=== PATIENT | female | born 1960 | race Caucasian/White ===

== ENCOUNTER → 2023-03-22 12:34 | Outpatient (REF) | payer BC, SELFPAY ==
[2023-03-22 13:38] LABS: Urine Albumin Negative (Neg - Trace); Urine Bilirubin Negative (Negative); Urine Character Clear (Clear); Urine Color Yellow; Urine Glucose Negative (Negative); Urine Ketone Negative (Negative); Urine Leukocyte Negative (Negative); Urine Nitrite Negative (Negative); Urine Occult Blood Negative (Negative); Urine Urobilinogen Negative (Neg - 1+)
== END ==
LOC: OLAB 12:34
PROVIDERS: ATTENDING PHYSICIAN Family Medicine
DX: N39.0 Urinary tract infection, site not specified (principal)
CPT/HCPCS: 81003

== ENCOUNTER → 2024-02-24 11:18 | Outpatient (REF) | payer BC, SELFPAY | LOC: WDC 11:18 | PROVIDERS: ATTENDING PHYSICIAN Student in an Organized Health Care Education/Training Program | DX: Z12.31 Encounter for screening mammogram for malignant neoplasm of breast (principal) | CPT/HCPCS: 77063; 77067 ==

== ENCOUNTER → 2024-03-07 12:18 | Outpatient (REF) | payer BC, SELFPAY | LOC: MRI 3T 12:18 | PROVIDERS: ATTENDING PHYSICIAN Physician Assistant Medical; FAMILY PHYSICIAN Family Medicine | DX: M25.562 Pain in left knee (principal) | CPT/HCPCS: 73721 ==

== ENCOUNTER 2024-06-28 13:50 | Outpatient (RCR) | payer BC, SELFPAY | END 2024-06-28 23:59 | disposition home or self-care (01) | LOC: RPT 13:50 | PROVIDERS: ATTENDING PHYSICIAN Physician Assistant Medical; FAMILY PHYSICIAN Family Medicine | DX: M25.562 Pain in left knee (principal); M17.12 Unilateral primary osteoarthritis, left knee | CPT/HCPCS: 97010; 97110; 97162; 97535 ==

== ENCOUNTER 2024-07-30 15:58 | Outpatient (RCR) | payer BC, SELFPAY | END 2024-07-30 23:59 | disposition home or self-care (01) | LOC: RPT 15:58 | PROVIDERS: ATTENDING PHYSICIAN Physician Assistant Medical; FAMILY PHYSICIAN Family Medicine | DX: M17.12 Unilateral primary osteoarthritis, left knee (principal) | CPT/HCPCS: 97010; 97110 ==

== ENCOUNTER 2024-08-19 11:50 | Emergency (ER) | payer BC, SELFPAY ==
[2024-08-19] VITALS (8 sets, daily range): BP systolic 111–137; BP diastolic 66–79; BMI 35.2
[2024-08-19 12:10] LABS: % Basophils 0.5 % (0-2); % Eosinophils 1.9 % (0-6); % Immature Granulocytes 0.2 % (0-0.5); % Lymphocytes 30.6 % (20.5-51.1); % Monocytes 7.8 % (1.7-9.3); Absolute Eosinophils 0.1 10^3/uL (0-0.7); Absolute Lymphocytes 1.3 10^3/uL (1.2-3.4); Absolute Monocytes 0.3 10^3/uL (0.1-0.6); Absolute Neutrophils 2.5 10^3/uL (1.4-6.5); Hematocrit 34.2 % (37.0-47.0); Hemoglobin 12.3 g/dL (12.0-16.0); Mean Corpuscular Hgb 29.9 pg (27.0-31.0); Mean Corpuscular Volume 83.2 fL (81.0-99.0); Mean Platelet Volume 10.4 fL (7.4-10.4); Nucleated Red Blood Cells % 0 %; Platelet Count 212 10^3/uL (130-400); Red Blood Cell Count 4.11 10^6/uL (4.20-5.40); Red Cell Dist. Width 12.6 % (11.5-14.5); White Blood Cell Count 4.3 10^3/uL (4.8-10.8)
[2024-08-19 12:22] LABS: ALT (SGPT) 31 U/L (0-35); AST (SGOT) 29 U/L (14-36); Albumin 4.4 g/dl (3.5-5.0); Alkaline Phosphatase 81 U/L (38-126); Blood Urea Nitrogen 22 mg/dl (7-17); Calcium 9.5 mg/dl (8.4-10.2); Carbon Dioxide 26 mmol/L (22-30); Chloride 102 mmol/L (98-107); Glucose 101 mg/dl (70-99); Potassium 3.7 mmol/L (3.5-5.1); Sodium 139 mmol/L (135-145); Total Bilirubin 0.4 mg/dl (0.2-1.3); Total Protein 6.5 g/dl (6.3-8.2); eGFR > 60.00
[2024-08-19 12:33] LABS: Troponin I < 0.012 ng/ml
--- NOTE | 2024-08-19 12:41 | ED.GENMED ---
History of Present Illness
<Gifty Jackson PA-C - Last Filed: 08/19/24 18:05>
General
Chief Complaint: Chest Problem
Source: patient
Exam Limitations: none
Time Seen by Provider: 08/19/24 12:40
Nursing documentation reviewed up to this point in time: agreed with
History of Present Illness
History of Present Illness:
64-year-old female with past medical history of hypertension on amlodipine, losartan presenting emergency department today with concerns of pain under her left breast that started this morning during work. 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
that she was cleaning a room upstairs and throwing away garbage when she went to go take a break and felt pain in her left lower ribs. Patient states that she did not bend over a trash can or had trauma to the chest wall. Patient has no personal
history of cardiac disease. Patient has no diaphoresis, no paresthesias, no nausea or vomiting. Patient denies any abdominal pain. Patient has no shortness of breath. Patient has no back pain. Patient states that she does have a significant
family history of cardiac disease, with her father having his first heart attack in his 50s.
Past History
<Gifty Jackson PA-C - Last Filed: 08/19/24 18:05>
Past History
ED Past Medical History: HTN, Hypercholesterolemia and Other (Sleep apnea, Hypoglycemia, Anemia, )
ED Past Surgical History: Gynecological (total Hysterectomy) and Orthopedic (Left knee surgery)
Social History
Tobacco: No 2nd hand smoke
Alcohol: None
Personal: (Seperated)
Living: alone
Employment: Employed
Family History
Family History: Other
Review of Systems
Darinlt;Gifty Jackson PA-C - Last Filed: 08/19/24 18:05>
Review of Systems
All Other Systems: ROS reviewed and negative except as documented in HPI and ROS
Phy Exam
<Gifty Jackson PA-C - Last Filed: 08/19/24 18:05>
Physical Exam
Physical Exam:
General: Patient is well appearing and in no acute distress; non-toxic
Skin: Warm and dry, no rashes or lesions
Head: Normocephalic, atraumatic
Eyes: Sclera non-icteric. EOMs intact.
Cardiac: Regular rate and rhythm, left lower external chest wall is tender to palpation over lower ribs, no palpable crepitus
Peripheral Vascular: No lower extremity swelling or edema
Pulm: Normal respiratory effort, no wheezes, rales, rhonchi
Musculoskeletal: Tenderness to palpation of external chest wall, no pain with passive range of motion of left shoulder
Neuro: CN II-XII intact, no focal neurologic deficits.
Psychiatric: Appropriate mood and affect.
Scores
<Gifty Jackson PA-C - Last Filed: 08/19/24 18:05>
PE Wells Score
Symptoms of DVT: No
No alternative diagnosis better explains the illness: No
Tachycardia with pulse > 100: No
Immobilization (>=3 days) or surgery within previous 4 weeks: No
Prior history of DVT or pulmonary embolism: No
Presence of hemoptysis: No
Presence of malignancy: No
Pulmonary Embolism Risk Score: 0
Probability of PE: Pt is low risk
<Rishi Bryant DO - Last Filed: 08/19/24 14:26>
PE Wells Score
Pulmonary Embolism Risk Score: 0
Probability of PE: Pt is low risk
Course
<Gifty Jackson PA-C - Last Filed: 08/19/24 18:05>
Orders/Labs/Results
Orders:
Orders
08/19/24 11:53
Electrocardiogram (*1) Urgent
Reason for Study: Chest Pain
EKG- Treatment ONCE
08/19/24 12:02
Complete Blood Count/With Diff Urgent
Comprehensive Metabolic Panel Urgent
Troponin I Urgent
08/19/24 13:04
Ibuprofen [Motrin] 400 mg PO NOW STA
CR Chest - 2 Views Urgent
Comment:
Reason For Exam: left sided chest pain
08/19/24 14:33
Troponin I Urgent
08/19/24 15:00
Electrocardiogram (*1) Urgent
Reason for Study: Chest Pain
Abnormal Lab Results
08/19/24
12:02
WBC 4.3 L 10^3/uL
(4.8-10.8)
RBC 4.11 L 10^6/uL
(4.20-5.40)
Hct 34.2 L %
(37.0-47.0)
BUN 22 H mg/dl
(7-17)
Glucose 101 H mg/dl
(70-99)
08/19/24 12:02
08/19/24 12:02
Vital Signs
Initial and Last Documented VS:
Initial Vital Signs
Temp Pulse Resp BP Pulse Ox
98 F 64 16 137/79 98
08/19/24 11:51 08/19/24 11:51 08/19/24 11:51 08/19/24 11:51 08/19/24 11:51
Last Documented Vital Signs
Temp Pulse Resp BP Pulse Ox
98 F 53 18 111/69 99
08/19/24 11:51 08/19/24 16:26 08/19/24 16:26 08/19/24 16:26 08/19/24 16:26
<Rishi Bryant, DO - Last Filed: 08/19/24 14:26>
Orders/Labs/Results
Orders:
Orders
08/19/24 11:53
Electrocardiogram (*1) Urgent
Reason for Study: Chest Pain
EKG- Treatment ONCE
08/19/24 12:02
Complete Blood Count/With Diff Urgent
Comprehensive Metabolic Panel Urgent
Troponin I Urgent
08/19/24 13:04
Ibuprofen [Motrin] 400 mg PO NOW STA
CR Chest - 2 Views Urgent
Comment:
Reason For Exam: left sided chest pain
08/19/24 14:33
Troponin I Urgent
08/19/24 15:00
Electrocardiogram (*1) Urgent
Reason for Study: Chest Pain
Abnormal Lab Results
08/19/24
12:02
WBC 4.3 L 10^3/uL
(4.8-10.8)
RBC 4.11 L 10^6/uL
(4.20-5.40)
Hct 34.2 L %
(37.0-47.0)
BUN 22 H mg/dl
(7-17)
Glucose 101 H mg/dl
(70-99)
08/19/24 12:02
08/19/24 12:02
Vital Signs
Initial and Last Documented VS:
Initial Vital Signs
Temp Pulse Resp BP Pulse Ox
98 F 64 16 137/79 98
08/19/24 11:51 08/19/24 11:51 08/19/24 11:51 08/19/24 11:51 08/19/24 11:51
Last Documented Vital Signs
Temp Pulse Resp BP Pulse Ox
98 F 53 18 111/69 99
08/19/24 11:51 08/19/24 16:26 08/19/24 16:26 08/19/24 16:26 08/19/24 16:26
Darinlt;Gifty Jackson PA-C - Last Filed: 08/19/24 18:05>
MDM/Problems Addressed
Differential Diagnosis Includes:
Differentials include ACS, costochondritis, GERD, musculoskeletal sprain/strain, rib fracture
MDM/Problems Addressed:
64-year-old female with past medical history of hypertension on amlodipine, losartan presenting emergency department today with concerns of pain under her left breast that started this morning during work. She states it started after throwing bags
of garbage and trash. Patient states that she never had pain like this before and it has been persistent. Patient has no medical history other than hypertension, she did have a stress test a few years ago when she was persistently hypertensive,
the stress test at the time was indeterminant and revealed moderate risk. She had an echo performed as well which was normal ejection fraction. Her EKG today shows no ischemic changes. She had 2 troponins performed which were both undetectable.
Her pain did slightly improve with ibuprofen. Doubt cardiac etiology to her symptoms, doubt PE considering patient has no risk factors, her pain is not pleuritic, she is not tachycardic, not hypoxic. Considering patient had indeterminant stress
test in the past, will refer her to the cardiac hotline for urgent outpatient cardiac follow-up. Patient stable for discharge
Chronic conditions affecting care:
htn
Darinlt;Gifty Jackson PA-C - Last Filed: 08/19/24 18:05>
*Pulse Oximetry
Patient hypoxic: no
*EKG
EKG Intrepretation Date: 08/19/24
Interpretation: abnormal
Comparison EKG: no changes
Heart Rate: 59
Rate: bradycardiac
Rhythm: sinus
Interval: normal interval and normal QT interval
QRS Pattern: normal QRS
Ischemia: no ischemia
*Dragger Out Interpretation
Rate: normal
Interpretation: normal
Heart Rate: 60
Rhythm: sinus
*Critical Care Note
Total Time (30-74mins, 75-104mins- exclusive of procedures): Not Applicable
Data Reviewed
Review of Other/Old Records Reveals: Records (Reviewed ER physician documentation from 06/01/23, patient seen for left foot and)
Source: patient and records (Did review previous echocardiogram and previous stress test)
Prescriptions/Medications Considered But Not Given:
n/a
Further Testing Considered But Not Given:
n/a
ED Attending Note
<Gifty Jackson PA-C - Last Filed: 08/19/24 18:05>
-
Portions of this chart may have been created with voice recognition software.� Occasional wrong word or��sound alike� substitutions may have occurred due to the inherent limitations of voice recognition software.
<Rishi Bryant DO - Last Filed: 08/19/24 14:26>
ED Attending Note
Patient seen and examined by attending physician: Yes
I performed the substantive portion of visit, reviewed & personally made and approve the management plan that is documented in note by myself or CLARENCE.: Yes
ED Attending Note:
I have seen and evaluated the patient with a [id number] encounter. I have spoken to the advance practicer provider and involved in the medical history, the physical exam, medical decision making.
Evaluation and management service: agree unless noted differently below.
Results interpretation: agree unless noted differently below.
Focused HPI: 64-year-old female presenting with left lower chest pain. This occurred at work. She did do some lifting prior to taking a break but does not believe heavy lifting.
Physical exam: Sitting bed comfortably. Heart regular rate and rhythm. Lungs clear. Mild tenderness to left costochondral joint
Medical Decision Making: EKG nonischemic. Will obtain 2 troponin rule out. Chest x-ray clear. Second troponin negative, will have her follow-up with cardiology
Discharge Plan
Departure
Patient Disposition: Home (Routine Discharge)
Date of Disposition: 08/19/24
Time of Disposition: 16:02
Patient with high blood pressure during this ER visit?: Yes
Condition: Good
Discharge Problem:
Chest pain
Instructions: Chest Pain DCA Follow Up, BLOOD PRESSURE
Prescriptions:
No Action
amlodipine 5 MG tablet
5 mg PO DAILY
Losartan Potassium
50 mg PO DAILY
prednisone 50 MG tablet
50 mg PO DAILY Qty: 5 0RF
gabapentin 300 MG capsule
300 mg PO TID Qty: 20 0RF
amoxicillin-pot clavulanate 1 TABLET tablet
1 tab PO BID Qty: 14 0RF
oxycodone 5 MG tablet
5 mg PO Q4HPRN PRN (Reason: pain) Qty: 7 0RF
cephalexin 500 mg capsule
500 mg PO BID 10 Days Qty: 20 0RF
Referrals:
Compa Gregory DO [Family Provider] -
Activity Restrictions/Additional Instructions:
Your repeat blood work and EKG were reassuring.
Please follow up with [facility]. You should receive a call from [facility] to schedule an appointment. Please call in a few days if you do not receive a phone call.
Please return emergency department should you develop an acute worsening of your symptoms, shortness of breath, lightheadedness, dizziness, severe back pain, swelling in your legs, fainting spells, difficulty speaking, confusion, weakness on
one-sided body versus the other, or any other signs or symptoms concerning to you
Please follow-up with your primary care provider.
Interventions
Interventions:
*Risk Screen - Suicide Last Done: 08/19/24 11:51
*General Assessment Last Done: 08/19/24 12:41
*Neglect/Abuse Screening Last Done: 08/19/24 11:51
ED- Fall Risk Assessment Last Done: 08/19/24 12:41
*ED COVID-19 Vaccine History Last Done: 08/19/24 12:41
*Nursing Disposition Last Done: 08/19/24 16:26
ED- Cardiac Assessment Last Done: 08/19/24 12:41
ED- Pulmonary Assessment Last Done: 08/19/24 12:41
Discharge Date and Time
Discharge Date/Time: 08/19/24 16:27
Print Language: K[place]IL[place]
[2024-08-19] MEDS: MOTRIN 400 MG PO (13:09)
[2024-08-19 15:55] LABS: Troponin I < 0.012 ng/ml
== END 2024-08-19 16:27 | disposition home or self-care (01) ==
LOC: EMR 11:50
PROVIDERS: Emergency Medicine; Physician Assistant; EMERGENCY PHYSICIAN Student in an Organized Health Care Education/Training Program; FAMILY PHYSICIAN Family Medicine
DX: R07.89 Other chest pain (principal); I10 Essential (primary) hypertension
CPT/HCPCS: 99285; 71046; 80053; 84484; 85025; 93005

== ENCOUNTER 2024-08-25 08:55 | Emergency (ER) | payer SELFPAY ==
[2024-08-25 09:10] VITALS: BP 125/82
--- NOTE | 2024-08-25 11:03 | ED.GENMED ---
History of Present Illness
General
Chief Complaint: Head Injury
Source: patient
Exam Limitations: none
Time Seen by Provider: 08/25/24 09:47
Nursing documentation reviewed up to this point in time: agreed with
History of Present Illness
History of Present Illness:
64-year-old female with past ministry of hypertension anemia presenting to the emergency department today after hitting the left forehead on a table when leaning over quickly did not lose consciousness but felt off at the time. Has had some ongoing
headache light sensitivity nausea since. Denies any numbness weakness chest pain or shortness of breath. No additional injuries. Did not lose consciousness.
Past History
Past History
ED Past Medical History: HTN, Hypercholesterolemia and Other (Sleep apnea, Hypoglycemia, Anemia, )
ED Past Surgical History: Gynecological (total Hysterectomy) and Orthopedic (Left knee surgery)
Social History
Tobacco: No 2nd hand smoke
Alcohol: None
Personal: (Seperated)
Living: alone
Employment: Employed
Family History
Family History: Other
Review of Systems
Review of Systems
Allergies reviewed?: Yes
All Other Systems: ROS reviewed and negative except as documented in HPI and ROS
Phy Exam
Physical Exam
Physical Exam:
GENERAL: Alert , in no apparent distress
EYE: pupils equal and reactive
NECK: Supple, no significant adenopathy.
ENT: o/p clr, mmm.
CARDIAC: Regular rate and rhythm .
LUNGS: Clear breath sounds bilaterally, no acute respiratory distress, no wheezes/rales/rhonchi
ABDOMEN: Soft, without focal tenderness, no r/g, no cvat
NEUROLOGICAL: Alert and oriented, no focal neuro deficits 5 out of 5 upper and lower extremity strength normal sensation with palpating bilaterally normal finger-nose and [id number] no pronator drift
SKIN: Warm and dry, skin intact.
MUSCULOSKELETAL: No edema, well perfused.
PSYCH: Normal and appropriate interaction.
Course
Orders/Labs/Results
Orders:
Orders
08/25/24 09:47
CT Head W/o Iv Contrast Urgent
Comment:
Reason For Exam: fall yesterday hit head
Vital Signs
Initial and Last Documented VS:
Initial Vital Signs
Temp Pulse Resp BP Pulse Ox
98.3 F 67 18 125/82 99
08/25/24 09:10 08/25/24 09:10 08/25/24 09:10 08/25/24 09:10 08/25/24 09:10
Last Documented Vital Signs
Temp Pulse Resp BP Pulse Ox
98.3 F 67 18 125/82 99
08/25/24 09:10 08/25/24 09:10 08/25/24 09:10 08/25/24 09:10 08/25/24 09:10
MDM/Problems Addressed
MDM/Problems Addressed:
64-year-old female presenting to the emergency department today with concerns of ongoing symptoms after hitting the left side of her forehead when leaning over too quickly on an end table. Here vital signs are normal patient no distress normal
neurologic evaluation. Head CT was performed that did not show any complications or bleed. Patient with likely concussion. Plan for symptomatic treatment and outpatient follow-up. Return precautions given.
*Critical Care Note
Total Time (30-74mins, 75-104mins- exclusive of procedures): Not Applicable
ED Attending Note
-
Portions of this chart may have been created with voice recognition software.� Occasional wrong word or��sound alike� substitutions may have occurred due to the inherent limitations of voice recognition software.
Discharge Plan
Departure
Patient Disposition: Home (Routine Discharge)
Date of Disposition: 08/25/24
Time of Disposition: 11:05
Patient with high blood pressure during this ER visit?: No
Condition: Good
Covid-19: Not Applicable
Discharge Problem:
Concussion
Instructions: Concussion, Adult (DC)
Prescriptions:
No Action
amlodipine 5 MG tablet
5 mg PO DAILY
Losartan Potassium
50 mg PO DAILY
prednisone 50 MG tablet
50 mg PO DAILY Qty: 5 0RF
gabapentin 300 MG capsule
300 mg PO TID Qty: 20 0RF
amoxicillin-pot clavulanate 1 TABLET tablet
1 tab PO BID Qty: 14 0RF
oxycodone 5 MG tablet
5 mg PO Q4HPRN PRN (Reason: pain) Qty: 7 0RF
cephalexin 500 mg capsule
500 mg PO BID 10 Days Qty: 20 0RF
Referrals:
Compa Gregory, DO [Family Provider] -
Stand Alone Forms: Return to Work
Activity Restrictions/Additional Instructions:
You came to the emergency department today with concerns of ongoing symptoms after hitting her head. You likely have a concussion. You had a normal head CT. Please follow-up closely as an outpatient for any ongoing symptoms. Return to the
emergency department for any worsening, new or concerning symptoms.
Interventions
Interventions:
*Risk Screen - Suicide Last Done: 08/25/24 09:10
*General Assessment Last Done: 08/25/24 09:10
*Neglect/Abuse Screening Last Done: 08/25/24 09:10
ED- Neurological Assessment Last Done: 08/25/24 10:30
ED-Skin Assessment Last Done: 08/25/24 10:30
Discharge Date and Time
Print Language: PERSIAN
== END 2024-08-25 11:28 | disposition home or self-care (01) ==
LOC: EMR 08:55
PROVIDERS: EMERGENCY PHYSICIAN Emergency Medicine; FAMILY PHYSICIAN Family Medicine
DX: S06.0X0A Concussion without loss of consciousness, initial encounter (principal); W22.09XA Striking against other stationary object, initial encounter; I10 Essential (primary) hypertension; E78.00 Pure hypercholesterolemia, unspecified; G47.30 Sleep apnea, unspecified
CPT/HCPCS: 99284; 70450

== ENCOUNTER → 2024-09-02 17:21 | Outpatient (REF) | payer BC, SELFPAY | LOC: RAD 17:21 | PROVIDERS: ATTENDING PHYSICIAN Physician Assistant Medical | DX: M79.604 Pain in right leg (principal); M79.605 Pain in left leg | CPT/HCPCS: 93970 ==

== ENCOUNTER → 2024-09-15 13:43 | Outpatient (REF) | payer BC, SELFPAY | LOC: RCS 13:43 | PROVIDERS: ATTENDING PHYSICIAN Nurse Practitioner; FAMILY PHYSICIAN Family Medicine | DX: I10 Essential (primary) hypertension (principal); R06.02 Shortness of breath; R07.9 Chest pain, unspecified | CPT/HCPCS: 93306 ==

== ENCOUNTER → 2024-09-20 07:38 | Outpatient (REF) | payer BC, SELFPAY ==
[2024-09-20] MEDS: LEXISCAN 0.4 MG IV (09:39)
[2024-09-20] MEDS: FLUSH (NSS) 1 FLUSH IV (09:39)
== END ==
LOC: RCS 07:38
PROVIDERS: ATTENDING PHYSICIAN Nurse Practitioner; FAMILY PHYSICIAN Family Medicine
DX: I10 Essential (primary) hypertension (principal); R06.02 Shortness of breath; R07.9 Chest pain, unspecified
CPT/HCPCS: 78452; 93017; A9500; J2785

== ENCOUNTER → 2024-09-23 10:59 | Outpatient (REF) | payer BC, SELFPAY ==
[2024-09-23 11:56] LABS: % Basophils 0.4 % (0-2); % Eosinophils 0.9 % (0-6); % Immature Granulocytes 0.2 % (0-0.5); % Monocytes 7.7 % (1.7-9.3); % Neutrophils 65.8 % (42.2-75.2); Absolute Lymphocytes 1.1 10^3/uL (1.2-3.4); Absolute Monocytes 0.4 10^3/uL (0.1-0.6); Hematocrit 36.7 % (37.0-47.0); Hemoglobin 12.6 g/dL (12.0-16.0); Mean Corp Hgb Conc. 34.3 g/dL (33.0-37.0); Mean Corpuscular Hgb 29.5 pg (27.0-31.0); Mean Corpuscular Volume 85.9 fL (81.0-99.0); Mean Platelet Volume 10.8 fL (7.4-10.4); Nucleated Red Blood Cells % 0 %; Platelet Count 246 10^3/uL (130-400); Red Blood Cell Count 4.27 10^6/uL (4.20-5.40); Red Cell Dist. Width 12.9 % (11.5-14.5); White Blood Cell Count 4.6 10^3/uL (4.8-10.8)
[2024-09-23 11:58] LABS: Urine Albumin Negative (Neg - Trace); Urine Bilirubin Negative (Negative); Urine Character Clear (Clear); Urine Color Yellow; Urine Glucose Negative (Negative); Urine Ketone Negative (Negative); Urine Leukocyte Negative (Negative); Urine Nitrite Negative (Negative); Urine Occult Blood Negative (Negative); Urine Urobilinogen Negative (Neg - 1+)
[2024-09-23 12:28] LABS: ALT (SGPT) 24 U/L (0-35); AST (SGOT) 31 U/L (14-36); Albumin 4.9 g/dl (3.5-5.0); Alkaline Phosphatase 77 U/L (38-126); Blood Urea Nitrogen 14 mg/dl (7-17); Calcium 9.9 mg/dl (8.4-10.2); Carbon Dioxide 27 mmol/L (22-30); Chloride 101 mmol/L (98-107); Glucose 86 mg/dl (70-99); HDL Cholesterol 57 mg/dl; LDL Cholesterol, Calculated 178 mg/dl; Potassium 3.9 mmol/L (3.5-5.1); Sodium 141 mmol/L (135-145); Total Bilirubin 0.8 mg/dl (0.2-1.3); Total Cholesterol 249 mg/dl (50-199); Total Protein 7.5 g/dl (6.3-8.2); Triglyceride 74 mg/dl (10-149); Very Low Density Lipoprotein 14 mg/dl (0-30); eGFR > 60.00
[2024-09-23 12:48] LABS: TSH Reflex To Free T4 0.58 uIU/ml (0.47-4.68)
== END ==
LOC: REG 10:59
PROVIDERS: ATTENDING PHYSICIAN Family Medicine
DX: Z00.00 Encounter for general adult medical examination without abnormal findings (principal)
CPT/HCPCS: 36415; 80053; 80061; 81003; 84443; 85025